=== PATIENT | male | born 1950 | race Caucasian/White ===

== ENCOUNTER → 2017-08-08 | Outpatient (CLI) | payer OTHER | LOC: FIMAGING 10:04 | DX: M25.552 Pain in left hip (principal) | CPT/HCPCS: 78300; A9503 ==

== ENCOUNTER 2017-08-17 05:57 | Emergency (ER) | payer OTHER ==
[2017-08-17 06:02] VITALS: BP 176/81; PULSE 51; RESP 20; TEMP 97.5; O2SAT 96
[2017-08-17] MEDS ORDERED: IBUPROFEN 200 MG TAB PO ONE (06:15)
--- NOTE | 2017-08-17 06:20 | EDPHY ---
H & P Stated Complaint: left rib pain Source: Patient Exam Limitations: No limitations - Personal History Tetanus Vaccine Date: 2008 - Medical/Surgical History Hx Asthma: No Hx Chronic Respiratory Disease: No Hx Diabetes: No Hx Cardiac Disease: Yes Hx Renal Disease: No Hx Cirrhosis: No Hx Alcoholism: No Hx HIV/AIDS: No Hx Splenectomy or Spleen Trauma: No Other PMH: HX: HYPERLIPIDEMIA, RIGHT HIP REPLACEMENT, HERNIA REPAIR, - Social History Smoking Status: Never smoked <Cecilia Vargas - Last Filed: 08/17/17 06:55> <Mateo Christianson - Last Filed: 08/21/17 10:26> HPI/ROS: HPI The patient presents with left-sided chest and abdominal pain which has been present since yesterday at about 1:30 p.m. when he fell on his snowboard. He was riding fairly fast, believes he caught an edge, and fell hard onto his left side. He had pain immediately, however the pain is gotten progressively worse. It is worse with deep breaths and movement. The pain is sharp in nature. He has not had any nausea or vomiting.. REVIEW OF SYSTEMS Constitutional: No fever, no chills. Eyes: No discharge. ENT: No sore throat. Cardiovascular: Positive for chest pain, no palpitations. Respiratory: No cough, no shortness of breath. Gastrointestinal: See HPI Genitourinary: No hematuria. Musculoskeletal: No back pain. Skin: No rashes. Neurological: No headache. PMHx: Hyperlipidemia, history of right hip arthroplasty PHYSICAL General Appearance: Alert, no distress Eyes: Pupils equal and round no pallor or injection ENT, Mouth: Mucous membranes moist Respiratory: There are no retractions, lungs are clear to auscultation, left- sided lateral lower rib segment tenderness to palpation Cardiovascular: Regular rate and rhythm Gastrointestinal: Abdomen is soft with tenderness in the left upper and left lower quadrants without rebound or guarding, no masses, bowel sounds normal Neurological: A&O, moves all extremities Skin: Warm and dry, no rashes Musculoskeletal: Neck is supple non tender Extremities: symmetrical, full range of motion Psychiatric: Patient is oriented X 3, there is no agitation (Cecilia Vargas) Constitutional: Initial Vital Signs Temperature (C) 36.4 C 08/17/17 06:00 Heart Rate 51 L 08/17/17 06:00 Respiratory Rate 20 08/17/17 06:00 Blood Pressure 176/81 H 08/17/17 06:00 O2 Sat (%) 96 08/17/17 06:00 O2 Delivery Mode Room Air Allergies/Adverse Reactions: No Known Allergies Allergy (Unverified 08/17/17 06:00) Home Medications: Medication Instructions Recorded Aspirin [Aspirin 81mg (OTC)] 81 mg PO DAILY 10/08/13 Cholecalciferol Vit D3 [Vitamin D3 2,000 units PO DAILY 10/08/13 1000 units (OTC)] Fluticasone Nasal [Flonase Nasal 1 sprays [place] BID 10/08/13 [place] (RX)] Herbals/Supplements -Info Only 1 each PO AD 10/08/13 Ibuprofen [Motrin] 200 - 400 mg PO DAILY PRN 10/08/13 [place]-3 Fatty Acids [Fish Oil 1000 1,000 mg PO BID 10/08/13 mg (OTC)] Rosuvastatin Calcium [Crestor 5mg] 5 mg PO MWF@2100 10/08/13 Ubidecarenone [Co Q-10] 100 mg PO DAILY 10/08/13 Medical Decision Making <Cecilia Vargas - Last Filed: 08/17/17 06:55> - Diagnostics Imaging: Discussed imaging studies w/ crew caller Radiologist <Mateo Christianson - Last Filed: 08/21/17 10:26> - Diagnostics Imaging Results: CTChest: Negative for chest or splenic trauma. (Mateo Christianson) Differential Diagnosis: 67-year-old male status post snowboarding accident yesterday with left-sided chest and abdominal pain. Differential diagnosis includes pneumothorax, rib fracture, rib contusion, pulmonary contusion, splenic laceration. In the emergency department, patient had (Cecilia Vargas) Other Provider: I was asked by Dr. Vargas to follow-up on CT read for this patient and discharge home if negative. CT is indeed negative. On re-eval, patient comfortable and no apparent change in condition. Patient feels comfortable going home. (Mateo Christianson) - Data Points Laboratory Results: Laboratory Results 08/17/17 06:25 Medications Given: Discontinued Medications Ibuprofen (Motrin) 400 mg PO EDNOW ONE Stop: 08/17/17 06:16 Last Admin: 08/17/17 06:24 Dose: 400 mg Lidocaine (Lidoderm 5%) 1 ea TD DAILY [place] Stop: 02/13/18 08:59 Last Admin: 08/17/17 07:15 Dose: 1 ea Departure <Cecilia Vargas - Last Filed: 08/17/17 06:55> <Mateo Christianson - Last Filed: 08/21/17 10:26> - Departure Disposition: Home, Routine, Self-Care Clinical Impression: Rib pain on left side Condition: Good Instructions: Chest Wall Pain (ED) Additional Instructions: I recommend you take ibuprofen 400 mg and acetaminophen 650 mg every 6 hr as needed for pain. You can use ice packs as well. If your pain continues for more than 1-2 days, you should follow up with your primary care doctor. Referrals: Greg Carty MD [Primary Care Provider] - As per Instructions
[2017-08-17] MEDS ORDERED: IOPAMIDOL (ISOVUE-300) 100 ML BTL ONE (06:24)
[2017-08-17 06:38] LABS: PLATELET COUNT 247 10^3/uL (150-400)
[2017-08-17] MEDS ORDERED: LIDOCAINE 5% 1 EA PATCH TD SCH (09:00)
[2017-08-17] MEDS ORDERED: PATCH REMOVAL 1 EA PATCH TD SCH (21:00)
== END 2017-08-17 07:35 | disposition home or self-care (01) ==
DX: R07.81 Pleurodynia (principal); Z79.82 Long term (current) use of aspirin
CPT/HCPCS: 71101; 74177; 99285; Q9967; 82947-QW

== ENCOUNTER → 2017-09-07 | Outpatient (CLI) | payer OTHER ==
[~2017-09-07] MED LIST: BUPIVACAINE 0.25% 30 ML SDV ONE; DEPO METHYLPREDNISOLONE 80 MG/ML SDV ONE; LIDOCAINE 1% 300 MG/30 ML SDV ONE
== END ==
LOC: FIMAGING 07:58
DX: M25.551 Pain in right hip (principal); Z96.642 Presence of left artificial hip joint
CPT/HCPCS: 20610; J1040